=== PATIENT | male | born 1965 | race Caucasian/White ===

== ENCOUNTER 2020-03-15 09:13 | Emergency (ER) | payer MEDICAID ==
[~2020-03-15] VITALS: Ht 175.3 cm; Wt 63.5 kg
[2020-03-15 09:15] VITALS: BP 144/102
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
--- NOTE | 2020-03-15 09:45 | NUR ---
ED Nurse Note: Due to heavy drug abuse, unable to get IV access, ER MD aware.
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
--- NOTE | 2020-03-15 10:40 | Diagnostic Imaging Report ---
EXAM: CT Maxillofacial Without Intravenous Contrast CLINICAL HISTORY: PAIN TECHNIQUE: Axial computed tomography images of the face without intravenous contrast. CTDI is 15.3 mGy and DLP is 360.2 mGy-cm. One or more of the following dose reduction techniques were used: automated exposure control, adjustment of the mA and/or kV according to patient size, use of iterative reconstruction technique. COMPARISON: None FINDINGS: BONES: Nondisplaced fractures of the nasal bones. SINUSES: Mucosal thickening in the maxillary sinuses, sphenoid sinuses, ethmoid air cells, and frontal sinuses. Polyp versus mucous retention cyst in the left maxillary sinus. ORBITS: Normal. SOFT TISSUES: Left periorbital soft tissue swelling with supraorbital laceration. Nasal soft tissue swelling. Surgical clips in the neck soft tissues. OTHER: IMPRESSION: 1. Left periorbital soft tissue swelling with supraorbital laceration. Nasal soft tissue swelling. 2. Nondisplaced fractures of the nasal bones.
[2020-03-15] MEDS ORDERED: Lidocaine 1% 10mg/ml/EPI 0.01mg/ml 30ml INJ ONE ×2 (10:43→10:45)
--- NOTE | 2020-03-15 11:10 | NUR ---
ED Nurse Note: Dr. Elmore sutured patient's left eybrow, and right side of his nose, patient tolerated procedure well.
[2020-03-15] MEDS ORDERED: ACETAMINOPHEN500 M3 ORAL (11:22)
[2020-03-15] MEDS ORDERED: BACITRACIN ZIN1 EACH TOPIC (11:22)
[2020-03-15] MEDS ORDERED: Bacitracin Oint UD TOPIC ONE (11:30)
[2020-03-15 11:50] VITALS: BP 144/102
--- NOTE | 2020-03-15 12:05 | NUR ---
ED Nurse Note: Pt cleared by health care Provider for discharge. DC instructions/prescription was given and explained to pt and verbalized understanding of teachings. All medical deviecs such as ID band removed. Pt is AAO x4, ambulatory and left with all personal belongings.
== END 2020-03-15 11:50 | disposition home or self-care (01) ==
LOC: EDBD 09:13 → EMR 10:30
DX: S01.81XA Laceration without foreign body of other part of head, initial encounter (principal); S02.2XXA Fracture of nasal bones, initial encounter for closed fracture; S01.21XA Laceration without foreign body of nose, initial encounter; M25.512 Pain in left shoulder; Y08.09XA Assault by strike by other specified type of sport equipment, initial encounter; Y92.9 Unspecified place or not applicable; H11.32 Conjunctival hemorrhage, left eye
CPT/HCPCS: 12011; 12052; 70450; 70486; Z7502; 99284

== ENCOUNTER 2020-03-26 10:44 | Emergency (ER) | payer MEDICAID ==
[~2020-03-26] VITALS: Ht 175.3 cm; Wt 63.5 kg
[~2020-03-26 10:44] MED LIST: ACETAMINOPHEN500 M3 ORAL; BACITRACIN ZIN1 EACH TOPIC
[2020-03-26 11:09] VITALS: BP 131/91
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
[2020-03-26 11:25] VITALS: BP 131/91
== END 2020-03-26 11:25 | disposition home or self-care (01) ==
LOC: EMR 11:09
DX: Z48.02 Encounter for removal of sutures (principal); S01.112D Laceration without foreign body of left eyelid and periocular area, subsequent encounter; W22.8XXD Striking against or struck by other objects, subsequent encounter
CPT/HCPCS: 99281